=== PATIENT | female | born 1990 | race Hispanic/Latino ===

== ENCOUNTER 2018-01-08 11:53 | Emergency (ER) | payer SELFPAY ==
--- NOTE | 2018-01-08 16:27 | ER ---
Nurse's Notes [facility] Name: Alexa Mcdowell Age: 27 yrs Sex: Female : 1990 Arrival Date: 01/08/2018 Time: 11:59 Bed External Waiting Private MD: Diagnosis: False labor before 37 completed weeks of gestation, second trimester Presentation: 01/08 12:03 Presenting complaint: Bilateral flank pain and SOB x 2 days. Denies cough/fever/urinary hb s/s. Transition of care: patient was not received from another setting of care. Onset of symptoms was January 07, 2018. Risk Assessment: Do you want to hurt yourself or someone else? Patient reports no desire to harm self or others. Care prior to arrival: None. 12:03 Method Of Arrival: Ambulatory hb 12:03 Acuity: CIARA 3 hb Historical: - Allergies: 12:06 Amoxicillin; hb 12:06 Adhesives; hb - Home Meds: 12:06 Vitamin Oral tab 1 tab once daily [Active]; hb - PMHx: 12:06 Migraines; hb - PSHx: 12:06 Ear Tubes; ; hb - Immunization history:: Adult Immunizations up to date. - Social history:: Smoking status: Patient/guardian denies using tobacco. - Ebola Screening: : No symptoms or risks identified at this time. Assessment: 12:23 Reassessment: pt in L\T\D at this time. iw 12:23 Reassessment: pt was screened by Dr. Hensley, sent to L\T\D to be evaluated. iw Vital Signs: 12:04 BP 127 / 77; Pulse 89; Resp 20; Temp 97.9; Pulse Ox 100% on R/A; Pain 7/10; hb ED Course: 11:59 Patient arrived in ED. mr 12:04 Triage completed. hb 12:06 Arm band placed on left wrist. hb 12:07 Ramon Hensley MD is Attending Physician. gs 12:19 Swapna Meek, ABIGAIL is Primary Nurse. tw2 12:21 L\T\D via w/c with myself at this time for evaluation prior to ER treatment. iw Administered Medications: No medications were administered Outcome: 16:26 Discharge ordered by MD. gs 16:28 Patient left the ED. iw 16:28 unknown tw2 16:28 Instructed on need to see L\T\D Signatures: Eula Mcdonald Irene, RN RN iw Kimber Lema RN RN Swapna Meek RN RN tw2 Ramon Hensley MD MD gs
--- NOTE | 2018-01-08 16:27 | EDPHYS ---
Physician Documentation [facility] Name: Alexa Mcdowell Age: 27 yrs Sex: Female : 1990 Arrival Date: 01/08/2018 Time: 11:59 Bed External Waiting Private MD: ED Physician Ramon Hensley HPI: 01/08 16:15 This 27 yrs old Female presents to ER via Ambulatory with complaints of 23 wks gs . 16:15 The patient presents to the emergency department with cramping, no leaking or vag gs bleeding, starts from both sides wraps around front of abdomen. The estimated gestational age is 23 weeks. Associated signs and symptoms: Pertinent negatives: chest pain, says hard to take a deep breath but no SHOB no pleuritic chest pain. The patient has experienced similar episodes in the past, a few times. Historical: - Allergies: 12:06 Amoxicillin; hb 12:06 Adhesives; hb - Home Meds: 12:06 Vitamin Oral tab 1 tab once daily [Active]; hb - PMHx: 12:06 Migraines; hb - PSHx: 12:06 Ear Tubes; ; hb - Immunization history:: Adult Immunizations up to date. - Social history:: Smoking status: Patient/guardian denies using tobacco. - Ebola Screening: : No symptoms or risks identified at this time. ROS: 16:15 Cardiovascular: Negative for edema. gs Exam: 16:15 Head/Face: Normocephalic, atraumatic. Eyes: Pupils equal round and reactive to light, gs extra-ocular motions intact. Lids and lashes normal. Conjunctiva and sclera are non-icteric and not injected. Cornea within normal limits. Periorbital areas with no swelling, redness, or edema. ENT: Nares patent. No nasal discharge, no septal abnormalities noted. Tympanic membranes are normal and external auditory canals are clear. Oropharynx with no redness, swelling, or masses, exudates, or evidence of obstruction, uvula midline. Mucous membranes moist. Neck: Trachea midline, no thyromegaly or masses palpated, and no cervical lymphadenopathy. Supple, full range of motion without nuchal rigidity, or vertebral point tenderness. No Meningismus. Chest/axilla: Normal chest wall appearance and motion. Nontender with no deformity. No lesions are appreciated. Cardiovascular: Regular rate and rhythm with a normal S1 and S2. No gallops, murmurs, or rubs. Normal PMI, no JVD. No pulse deficits. Respiratory: Lungs have equal breath sounds bilaterally, clear to auscultation and percussion. No rales, rhonchi or wheezes noted. No increased work of breathing, no retractions or nasal flaring. Abdomen/GI: Soft, non-tender, with normal bowel sounds. No distension or tympany. No guarding or rebound. No evidence of tenderness throughout. Back: No spinal tenderness. No costovertebral tenderness. Full range of motion. Skin: Warm, dry with normal turgor. Normal color with no rashes, no lesions, and no evidence of cellulitis. MS/ Extremity: Pulses equal, no cyanosis. Neurovascular intact. Full, normal range of motion. Neuro: Awake and alert, GCS 15, oriented to person, place, time, and situation. Cranial nerves II-XII grossly intact. Motor strength 5/5 in all extremities. Sensory grossly intact. Cerebellar exam normal. Normal gait. 16:15 Constitutional: The patient appears alert, awake. 16:15 Musculoskeletal/extremity: DVT Exam: no pain, no swelling, no tenderness, negative Homans' sign noted on exam, no appreciated bluish discoloration, no erythema, no increased warmth. Vital Signs: 12:04 BP 127 / 77; Pulse 89; Resp 20; Temp 97.9; Pulse Ox 100% on R/A; Pain 7/10; hb MDM: 12:11 Patient medically screened. 16:15 Differential diagnosis: STD. Data reviewed: vital signs, nurses notes. Response to treatment: the patient's symptoms have mildly improved after treatment, will send to and. 01/08 12:22 Order name: Urine Dipstick-Ancillary (obtain specimen) Administered Medications: No medications were administered Disposition: 01/08/18 16:26 Discharged to Home. Impression: False labor before 37 completed weeks of gestation, second trimester. - Condition is Stable. - Discharge Instructions: Abdominal Pain During . - Medication Reconciliation Form, Thank You Letter, Antibiotic Education, Prescription Opioid Use form. - Follow up: Private Physician; When: 1 - 2 days; Reason: Re-evaluation by your physician. Signatures: Dispatcher [employer] Kristine Marie RN RN iw Baxter, Heather, RN RN Ramon Hensley MD MD gs Corrections: (The following items were deleted from the chart) 16:28 16:26 01/08/2018 16:26 Discharged to Home. Impression: False labor before 37 completed iw weeks of gestation, second trimester. Condition is Stable. Forms are Medication Reconciliation Form, Thank You Letter, Antibiotic Education, Prescription Opioid Use. Follow up: Private Physician; When: 1 - 2 days; Reason: Re-evaluation by your physician. gs
== END 2018-01-08 16:28 | disposition home or self-care (01) ==
LOC: ER 11:53
DX: O47.02 False labor before 37 completed weeks of gestation, second trimester (principal); Z3A.23 23 weeks gestation of pregnancy; Z88.1 Allergy status to other antibiotic agents; Z91.048 Other nonmedicinal substance allergy status
CPT/HCPCS: 99281